=== PATIENT | female | born 1955 | race American Indian/Alaskan Native ===

== ENCOUNTER 2020-05-18 19:03 | Emergency (ER) | payer OTHER ==
[2020-05-18 19:14] VITALS: BP 157/89
--- NOTE | 2020-05-18 20:18 | XRay Report ---
LEFT KNEE 3 VIEW(S) INDICATION / CLINICAL INFORMATION: MAIN knee pain. COMPARISON: None available. FINDINGS: BONES / JOINT(S): No acute fracture or subluxation. Mild tricompartmental degenerative changes. SOFT TISSUES: Small suprapatellar knee joint effusion. ADDITIONAL FINDINGS: None. Signer Name: Fernando Smiley MD Signed: 05/18/2020 8:13 PM Workstation Name: [id number]
--- NOTE | 2020-05-18 20:19 | XRay Report ---
CERVICAL SPINE 4 VIEWS INDICATION / CLINICAL INFORMATION: Neck pain. COMPARISON: None available. FINDINGS: VERTEBRAE: No acute fracture. No significant malalignment. DISC SPACES / FACET JOINTS:Mild generalized cervical spondylosis. PARASPINAL SOFT TISSUES:No significant abnormality. ADDITIONAL FINDINGS: None. Signer Name: Fernando Smiley MD Signed: 05/18/2020 8:15 PM Workstation Name: [id number]
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
== END 2020-05-18 23:00 | disposition home or self-care (01) ==
LOC: ED 19:03
DX: S80.02XA Contusion of left knee, initial encounter (principal); S16.1XXA Strain of muscle, fascia and tendon at neck level, initial encounter; I10 Essential (primary) hypertension; Z98.890 Other specified postprocedural states; V89.2XXA Person injured in unspecified motor-vehicle accident, traffic, initial encounter; Y93.89 Activity, other specified; Y92.410 Unspecified street and highway as the place of occurrence of the external cause; Y99.8 Other external cause status
CPT/HCPCS: 72040